=== PATIENT | female | born 1960 | race Two or more races ===

== ENCOUNTER 2024-04-27 20:47 | Emergency (ER) | payer MEDICAID, SELFPAY ==
[2024-04-27 20:48] VITALS: BP 165/80; PULSE 71; RESP 17; TEMP 36.8; O2SAT 100; BMI 34.2
--- NOTE | 2024-04-27 21:07 | PD.EDDENTL ---
ED Dental RME/HPI General Chief complaint: Dental/Oral/Throat Stated complaint: TOOTH PAIN Time Seen by Provider: 04/27/24 20:55 Arrival date/time: 04/27/24 20:47 63 year old female present to emergency room with c/o of dental pain for 1 day LOCATION: Dental pain SEVERITY: Symptoms are described as being severe with limitations on activities of daily living CONTEXT: The patient is unable to identify any inciting events. DURATION/TIMING: The symptoms started approximately 1 day ASSOCIATED SYMPTOMS: The patient is unable to identify any other associated symptoms. MODIFYING FACTORS: The patient is unable to identify any alleviating or aggravating symptoms. PERTINENT ROS: no fevers, no cough, no chest pain/shortness of breath no nausea,vomiting, diarrhea, no dizziness/headache no rash no loc/syncope no difficulty swallowing REVIEW OF SYSTEMS: See History of Present Illness - with the exception of those mentioned in the history of present illness, all other systems reviewed and reported as negative GENERAL: In general the patient is awake, interactive, in an emergency department gurney. HEAD/EYES/EARS/NOSE/THROAT: teeth/gingival in poor condition + dental caries normo-cephalic, atraumatic, mucus membranes are moist, anicteric, palpebral conjunctiva is pink, trachea is midline. SKIN: warm, dry, well-perfused, no jaundice, no rash, no telangiectasias or petechia. PSYCH: calm, cooperative, no evidence of psychosis or agitation Related Data Previous Rx's ?Medication ?Instructions ?Recorded amoxicillin 500 mg capsule 500 mg PO Q12H 10 days #20 caps 04/27/24 Allergies Allergy/AdvReac Type Severity Reaction Status Date / Time No Known Allergies Allergy Verified 04/27/24 20:49 Course Course Course Narrative: The Pt presents with? c/f a suspected dental infection, though may also represent a simple dental seth. The Pt is afebrile and well appearing, without evidence of periapical abscess, ANUG, deep space neck infxn, Alessandro?s, or mastoiditis. No trismus or airway involvement. Discussed supportive care and recommended urgent follow up with a dentist. ? amoxicillin 500mg bid for 10 days? ? Urgent follow up with a dentist Dental block procedure Consent for operation or procedure: Risks and benefits discussed with patient and consent obtained Lidocaine 3 ml The distribution of the inferior alveolar nerve was identified.? lidocaine 1% was injected into that region.? A short time later adequate analgesia was obtained. Estimated Blood Loss: minimal? Complications:? The patient tolerated the procedure well without complications. Quality Measures none Orders Category Date Time Status Amoxicillin Cap [Amoxil Cap] Med 04/27/24 21:19 Discontinued 500 mg PO X1 ONE Amoxicillin Susp [Amoxil Susp] Med 04/27/24 21:05 Discontinued 500 mg PO X1 ONE Vital Signs Vital signs: Vital Signs Temperature 98.2 F 04/27/24 20:48 Pulse Rate 71 04/27/24 20:48 Respiratory Rate 17 04/27/24 20:48 Blood Pressure 165/80 H 04/27/24 20:48 Pulse Oximetry (%) 100 04/27/24 20:48 Oxygen Delivery Method Room Air 04/27/24 20:48 Dental / Oral Patient data External records reviewed:: None Clinical information provided by:: patient Social determinants that could affect healthcare access:: none Patient has the following chronic illnesses:: none How is presenting disease/condition affected by chronic disease/condition?: uneffected by Evaluation data The following diagnostics were reviewed and interpreted by me:: other (specify) (none) Lab and/or radiology exams considered but not ordered:: none Interpretation Summary: none Medications / Prescriptions Medications or Prescriptions considered but not ordered:: none Medication administrations:: Medication Administration History Discontinued Medications Amoxicillin (Amoxicillin Susp 250 Mg/5 Ml Udc) 500 mg PO X1 ONE Stop: 04/27/24 21:06 Last Admin: 04/27/24 21:28 Dose: Not Given Documented By: SF Non-Admin Reason: Discontinued Amoxicillin (Amoxicillin 250 Mg Capsule) 500 mg PO X1 ONE Stop: 04/27/24 21:20 Last Admin: 04/27/24 21:23 Dose: 500 mg Documented By: SF none Consultations Consultation(s) initiated? (list below): No Diagnosis Most likely diagnosis given after review of the tests above:: dental infection Admission Indicated Admission indicated?: not indicated Admission Request Was there a request for admission?: No Disposition Plan Disposition Plan: Discharge Discharge Attestation Discharge Attestation: The patient and all family members were given an opportunity to ask questions and understood the discharge instructions. Discharge instructions specifically effects, indications for sooner follow up or return to the emergency department, and the expected course of current diagnosis. Patient condition: Stable Discharge Plan Plan Patient Disposition: HOME (Self Care) Prescriptions/Referrals Prescriptions/Med Rec: New amoxicillin 500 mg capsule 500 mg PO Q12H 10 Days Qty: 20 0RF Problem List Clinical Impression: Dental caries Patient/Caregiver Discharge Instructions Education Materials: Understanding Tooth Decay Print Language: Swedish Stand Alone Forms: Kathi Award Info., Patient Portal Info Letter MD Attestation MD Attestation The patient was seen by the midlevel practitioner. I, the co-signing physician, was present during the entire ER visit. While I did not physically examine the patient, I was available for consultation as needed.
[2024-04-27] MEDS: AMOXICILLIN 250 MG CAPSULE 500 MG PO (21:23)
== END 2024-04-27 21:26 | disposition home or self-care (01) ==
PROVIDERS: Emergency Provider Emergency Medicine
DX: K02.9 Dental caries, unspecified (principal)
CPT/HCPCS: 99282; A9270